=== PATIENT | female | born 1995 | race Caucasian/White ===

== ENCOUNTER 2019-07-01 08:21 | Emergency (ER) | payer OTHER ==
[~2019-07-01] VITALS: Ht 157.5 cm; Wt 72.6 kg
[2019-07-01 08:22] VITALS: BP 140/63
== END 2019-07-01 09:20 | disposition home or self-care (01) ==
LOC: ER 08:21
DX: J02.9 Acute pharyngitis, unspecified (principal); F17.210 Nicotine dependence, cigarettes, uncomplicated

== ENCOUNTER 2019-12-02 06:13 | Emergency (ER) | payer OTHER ==
[~2019-12-02] VITALS: Ht 157.5 cm; Wt 72.6 kg
[2019-12-02 09:35] VITALS: BP 108/48
== END 2019-12-02 09:36 | disposition home or self-care (01) ==
LOC: ER 06:13
DX: N60.01 Solitary cyst of right breast (principal); F17.210 Nicotine dependence, cigarettes, uncomplicated

== ENCOUNTER 2020-02-25 09:07 | Emergency (ER) | payer OTHER ==
[~2020-02-25] VITALS: Ht 157.5 cm; Wt 68.0 kg
[2020-02-25 09:41] LABS: BASOPHILS 0.3 % (0.0-2.0); EOSINOPHILS 1.3 % (0.0-3.0); HEMATOCRIT 39.9 % (37.0-47.0); HEMOGLOBIN 13.3 gm/dL (12.0-15.0); LYMPHOCYTES 18.1 % (24.0-44.0); MCH 30.9 pg (26.0-34.0); MCHC 33.4 g/dL (28.0-37.0); MCV 92.5 fL (80.0-100.0); MONOCYTES 10.2 % (1.0-8.0); PLATELET COUNT 279 thou/uL (150-400); POLYS 70.1 % (36.0-66.0); RBC 4.31 mil/uL (4.20-5.00); RDW 12.8 % (10.5-14.5); WBC 15.7 thou/uL (4.0-11.0)
[2020-02-25 09:49] LABS: CALCIUM 9.9 mg/dL (8.5-10.1); CREATININE 0.8 mg/dL (0.6-1.0); POTASSIUM 3.6 mmol/L (3.5-5.1)
[2020-02-25 11:00] VITALS: BP 92/57
[2020-02-25] MEDS ORDERED: AUGMENTIN 875-1 EACH PO (14:16)
[2020-02-25] MEDS ORDERED: NORCO 5-325 TA1 EAC2 PO (14:16)
--- NOTE | 2020-02-27 18:41 | HC ---
[facility] [place] [place] [address] CONSULTATION Name: RAJ BERMUDEZ Room #: DEP Gala#: [id number] Admission: 02/25/20 Attend Phys: Discharge: 02/25/20 Date of : 89 Report #: [id number] THIS REPORT FOR: cc: ANU - [place] family physician/PCP ANU - No family physician/PCP Natalio Lozano MD ~ DATE OF SERVICE: 02/25/2020 EMERGENCY ROOM CONSULTATION NOTE CHIEF COMPLAINT: Sore throat. HISTORY OF PRESENT ILLNESS: The patient is a 24-year-old female who presents with left-sided throat pain and difficulty opening her mouth. She has a past history of rare tonsillitis. She has not been running a high fever. She was diagnosed with peritonsillar cellulitis or abscess. The CT scan demonstrated some increased soft tissue swelling in the left peritonsillar region. PAST MEDICAL HISTORY: Unremarkable. MEDICATIONS: None. ALLERGIES: None. PHYSICAL EXAMINATION: GENERAL: Pleasant young female in no acute distress. EARS: Normal tympanic membranes. NOSE: Normal mucosa. NECK: Mild tender left-sided adenopathy. ORAL: ____ left greater than right with erythema and tenderness of the left soft palate. ASSESSMENT: Left peritonsillar abscess/cellulitis. PROCEDURE PERFORMED: Left soft plate injected with 5 mL of 1% lidocaine with epinephrine. I then, with an 18-gauge needle to aspirate some pus from the left peritonsillar spaces of soft palate. I then made a 2-cm incision with a 15-blade knife and opened up the ____ left peritonsillar abscess/cellulitis drained. RECOMMENDATIONS: 1. The patient already obtained ____ and dexamethasone. 2. Recommend Augmentin 875 mg b.i.d. for 10 days. [facility] [address] [place] [address] CONSULTATION Name: LARARAJ Room #: DEP FARTUN Cedeño#: [id number] Admission: 02/25/20 Attend Phys: Discharge: 02/25/20 Date of : 89 Report #: [id number] 3. Recommend hydrocodone/APAP for p.r.n. pain. 4. Recommend follow up in my office in 1 week. <ELECTRONICALLY SIGNED> By: Nataloi Lozano MD 02/27/20 1841 20 47 Natalio Lozano MD /nt
== END 2020-02-25 14:41 | disposition home or self-care (01) ==
LOC: ER 09:07
PROVIDERS: Emergency Medicine
DX: J35.1 Hypertrophy of tonsils (principal); J36 Peritonsillar abscess; F17.210 Nicotine dependence, cigarettes, uncomplicated